=== PATIENT | female | born 1985 | race Caucasian/White ===

== ENCOUNTER 2022-07-19 13:05 | Inpatient (IN) | payer BC ==
[2022-07-19 16:02] VITALS: BMI 16.4
[2022-07-19] MEDS ORDERED: BISMUTH SUBSALICYLATE 524 MG/30 ML PO PRN (17:36)
[2022-07-19] MEDS ORDERED: ACETAMINOPHEN 325 MG TABLET (FP) PO PRN ×2 (17:36)
[2022-07-19] MEDS ORDERED: IBUPROFEN 400 MG TABLET (FP) PO PRN (17:36)
[2022-07-19] MEDS ORDERED: DICYCLOMINE HCL 10 MG CAPSULE PO PRN (17:36)
[2022-07-19] MEDS ORDERED: MAGNESIUM HYDROX 2400MG/30ML ORAL SUSPENSION 30 ML CUP PO PRN (17:36)
[2022-07-19] MEDS ORDERED: BENZOCAINE/MENTHOL (CHLORASEPTIC ) LOZENGE MM PRN (17:36)
[2022-07-19] MEDS ORDERED: chlordiazePOXIDE HCL 25 MG CAPSULE PO PRN (17:36)
[2022-07-19] MEDS ORDERED: LOPERAMIDE HCL 2 MG CAPSULE PO PRN (17:36)
[2022-07-19] MEDS ORDERED: IBUPROFEN 600 MG TABLET (FP) PO PRN (17:36)
[2022-07-19] MEDS ORDERED: MAGNESIUM CITRATE 300 ML BOTTLE PO PRN (17:36)
[2022-07-19] MEDS ORDERED: MAG HYDROX/AL HYDROX/SIMETH 30 ML UNIT-DOSE CUP PO PRN (17:36)
[2022-07-19] MEDS ORDERED: ONDANSETRON *ODT* 4 MG TABLET SL PRN (17:36)
[2022-07-19] MEDS: METHOCARBAMOL 500 MG TABLET PO PRN (18:42)
[2022-07-19] MEDS: hydrOXYzine PAMOATE 25 MG CAPSULE (FP) PO SCH ×2 (18:42→22:31)
[2022-07-19] MEDS ORDERED: MELATONIN 5 MG TABLETS PO SCH (22:00)
[2022-07-19] MEDS: THIAMINE HCL 100 MG TABLET (FP) PO SCH (22:31)
[2022-07-19] MEDS: chlordiazePOXIDE HCL 25 MG CAPSULE PO SCH (22:31)
[2022-07-20] MEDS: chlordiazePOXIDE HCL 25 MG CAPSULE PO SCH ×4 (06:14→22:19)
[2022-07-20] MEDS: hydrOXYzine PAMOATE 25 MG CAPSULE (FP) PO SCH ×5 (06:14→22:19)
[2022-07-20] MEDS ORDERED: NICOTINE 7 MG/24 HOURS TOPICAL PATCH TD SCH (10:00)
[2022-07-20 10:09] LABS: HEMATOCRIT 39.4 % (32.4-45.2); HEMOGLOBIN 13.1 GM/dL (10.7-15.3); MCH 34.6 pg (25.7-33.7); MCHC 33.3 g/dl (32.0-36.0); MEAN CELL VOLUME 103.6 fl (80-96); MEAN PLT VOLUME 7.6 fl (7.5-11.1); PLATELET COUNT 189 10^3/uL (134-434); RDW 13.3 % (11.6-15.6); WHITE BLOOD COUNT 8.5 K/mm3 (4.0-10.0)
[2022-07-20 10:35] LABS: BLOOD UREA NITROGEN 13.8 mg/dL (7-18)
[2022-07-20 10:36] LABS: ALBUMIN 4.1 g/dl (3.4-5.0); BILIRUBIN,TOTAL 1.7 mg/dL (0.2-1); CREATININE 0.9 mg/dL (0.55-1.3)
[2022-07-20] MEDS: PRENATAL VITAMINS W/ FOLIC ACID TABLET (FP) PO SCH (10:36)
[2022-07-20 10:37] LABS: TOT PROT 7.8 g/dl (6.4-8.2)
[2022-07-20 10:38] LABS: CALCIUM 9.8 mg/dL (8.5-10.1)
[2022-07-20] MEDS: NICOTINE 10 MG CARTRIDGE (INHALER) IH PRN ×2 (10:39→17:38)
[2022-07-20] MEDS ORDERED: POTASSIUM CHLORIDE ORAL LIQUID 20 MEQ/15 ML PO ONE (12:00)
[2022-07-20] MEDS: NICOTINE 21 MG/24 HOURS TOPICAL PATCH TD SCH (15:43)
[2022-07-20] MEDS: METHOCARBAMOL 500 MG TABLET PO PRN (17:38)
[2022-07-20] MEDS: THIAMINE HCL 100 MG TABLET (FP) PO SCH (22:19)
[2022-07-20] MEDS: POTASSIUM CHLORIDE ORAL LIQUID 20 MEQ/15 ML PO SCH (22:19)
[2022-07-20] MEDS: SUVOREXANT 10 MG TABLET PO PRN (22:20)
[2022-07-21] MEDS: hydrOXYzine PAMOATE 25 MG CAPSULE (FP) PO SCH ×5 (05:44→22:10)
[2022-07-21] MEDS: chlordiazePOXIDE HCL 25 MG CAPSULE PO SCH ×4 (05:44→22:11)
[2022-07-21] MEDS: NICOTINE 10 MG CARTRIDGE (INHALER) IH PRN ×3 (05:44→19:01)
[2022-07-21] MEDS: PRENATAL VITAMINS W/ FOLIC ACID TABLET (FP) PO SCH (10:14)
[2022-07-21] MEDS: POTASSIUM CHLORIDE ORAL LIQUID 20 MEQ/15 ML PO SCH ×2 (10:15→22:10)
[2022-07-21] MEDS: NICOTINE 21 MG/24 HOURS TOPICAL PATCH TD SCH (10:16)
[2022-07-21 14:26] LABS: CALCIUM 10.7 mg/dL (8.5-10.1)
[2022-07-21 14:27] LABS: ALBUMIN 4.2 g/dl (3.4-5.0); BLOOD UREA NITROGEN 10.8 mg/dL (7-18)
[2022-07-21 14:33] LABS: BILIRUBIN,TOTAL 0.9 mg/dL (0.2-1)
[2022-07-21] MEDS: THIAMINE HCL 100 MG TABLET (FP) PO SCH (22:10)
[2022-07-22] MEDS ORDERED: chlordiazePOXIDE HCL 10 MG CAPSULE PO PRN
[2022-07-22] MEDS: hydrOXYzine PAMOATE 25 MG CAPSULE (FP) PO SCH ×5 (05:40→22:29)
[2022-07-22] MEDS: chlordiazePOXIDE HCL 10 MG CAPSULE PO SCH ×4 (05:41→22:29)
[2022-07-22] MEDS: NICOTINE 10 MG CARTRIDGE (INHALER) IH PRN ×2 (09:25→17:54)
[2022-07-22] MEDS: PRENATAL VITAMINS W/ FOLIC ACID TABLET (FP) PO SCH (10:29)
[2022-07-22] MEDS: NICOTINE 21 MG/24 HOURS TOPICAL PATCH TD SCH (10:29)
[2022-07-22] MEDS: SUVOREXANT 10 MG TABLET PO PRN (22:29)
[2022-07-22] MEDS: THIAMINE HCL 100 MG TABLET (FP) PO SCH (22:29)
[2022-07-23] MEDS: chlordiazePOXIDE HCL 10 MG CAPSULE PO SCH ×2 (05:46→17:35)
[2022-07-23] MEDS: hydrOXYzine PAMOATE 25 MG CAPSULE (FP) PO SCH ×5 (05:47→22:30)
[2022-07-23] MEDS: PRENATAL VITAMINS W/ FOLIC ACID TABLET (FP) PO SCH (10:49)
[2022-07-23] MEDS: NICOTINE 21 MG/24 HOURS TOPICAL PATCH TD SCH (10:50)
[2022-07-23] MEDS: METHOCARBAMOL 500 MG TABLET PO PRN (17:36)
[2022-07-23] MEDS: THIAMINE HCL 100 MG TABLET (FP) PO SCH (22:30)
[2022-07-24] MEDS ORDERED: chlordiazePOXIDE HCL 10 MG CAPSULE PO ONE (05:00)
[2022-07-24 05:10] VITALS: BP 113/66; PULSE 67; RESP 18; TEMP 98.6
[2022-07-24] MEDS: hydrOXYzine PAMOATE 25 MG CAPSULE (FP) PO SCH (05:52)
== END 2022-07-24 09:15 | disposition home or self-care (01) | DRG 775 ==
LOC: YASAS 13:05 → Y6N 17:26
PROVIDERS: ADMIT Allergy & Immunology; ATTEND Surgery
PROC: HZ2ZZZZ Detoxification Services for Substance Abuse Treatment (ICD-10-PCS; principal; 2022-07-19)
DX: F10.230 Alcohol dependence with withdrawal, uncomplicated (principal); F12.20 Cannabis dependence, uncomplicated; F17.210 Nicotine dependence, cigarettes, uncomplicated; F10.280 Alcohol dependence with alcohol-induced anxiety disorder; F10.282 Alcohol dependence with alcohol-induced sleep disorder; E87.6 Hypokalemia; R73.9 Hyperglycemia, unspecified; R74.8 Abnormal levels of other serum enzymes; Z91.410 Personal history of adult physical and sexual abuse
CPT/HCPCS: 36415; 80053; 81025; 83036; 85027; 86780; 87811; C9803-CS; U0003; U0005

== ENCOUNTER 2022-08-29 16:41 | Inpatient (IN) | payer BC ==
[2022-08-29 17:37] VITALS: BP 112/73; PULSE 86; RESP 17; TEMP 97.7; BMI 18.4
[2022-08-29] MEDS ORDERED: METHOCARBAMOL 500 MG TABLET PO PRN (18:42)
[2022-08-29] MEDS ORDERED: MAG HYDROX/AL HYDROX/SIMETH 30 ML UNIT-DOSE CUP PO PRN (18:42)
[2022-08-29] MEDS ORDERED: LOPERAMIDE HCL 2 MG CAPSULE PO PRN (18:42)
[2022-08-29] MEDS ORDERED: BENZOCAINE/MENTHOL (CHLORASEPTIC ) LOZENGE MM PRN (18:42)
[2022-08-29] MEDS ORDERED: NICOTINE 10 MG CARTRIDGE (INHALER) IH PRN (18:42)
[2022-08-29] MEDS ORDERED: MAGNESIUM CITRATE 300 ML BOTTLE PO PRN (18:42)
[2022-08-29] MEDS ORDERED: BISMUTH SUBSALICYLATE 524 MG/30 ML PO PRN (18:42)
[2022-08-29] MEDS ORDERED: IBUPROFEN 600 MG TABLET (FP) PO PRN (18:42)
[2022-08-29] MEDS ORDERED: ONDANSETRON *ODT* 4 MG TABLET SL PRN (18:42)
[2022-08-29] MEDS ORDERED: ACETAMINOPHEN 325 MG TABLET (FP) PO PRN ×2 (18:42)
[2022-08-29] MEDS ORDERED: IBUPROFEN 400 MG TABLET (FP) PO PRN (18:42)
[2022-08-29] MEDS ORDERED: MAGNESIUM HYDROX 2400MG/30ML ORAL SUSPENSION 30 ML CUP PO PRN (18:42)
[2022-08-29] MEDS ORDERED: DICYCLOMINE HCL 10 MG CAPSULE PO PRN (18:42)
[2022-08-29] MEDS ORDERED: hydrOXYzine PAMOATE 25 MG CAPSULE (FP) PO SCH (22:00)
[2022-08-29] MEDS ORDERED: THIAMINE HCL 100 MG TABLET (FP) PO SCH (22:00)
[2022-08-29] MEDS ORDERED: MELATONIN 5 MG TABLETS PO SCH (22:00)
[2022-08-30] MEDS ORDERED: NICOTINE 7 MG/24 HOURS TOPICAL PATCH TD SCH (10:00)
[2022-08-30] MEDS ORDERED: PRENATAL VITAMINS W/ FOLIC ACID TABLET (FP) PO SCH (10:00)
[2022-08-30] MEDS ORDERED: FLU VACC QS2022-23(6MOS UP)/PF 60 MCG/0.5 ML SYRINGE IM ONE (12:00)
[2022-08-31] MEDS ORDERED: PNEUMOC 20-VAL CONJ-DIP CRM/PF 0.5 ML SYRINGE IM ONE (12:00)
== END 2022-08-29 21:23 | disposition left against medical advice (07) | DRG 770 ==
LOC: YASAS 16:41 → Y3N 19:18
PROVIDERS: ADMIT Allergy & Immunology; ATTEND Surgery
PROC: HZ2ZZZZ Detoxification Services for Substance Abuse Treatment (ICD-10-PCS; principal; 2022-08-29)
DX: F10.230 Alcohol dependence with withdrawal, uncomplicated (principal); F12.20 Cannabis dependence, uncomplicated; F17.210 Nicotine dependence, cigarettes, uncomplicated
CPT/HCPCS: C9803-CS; U0003; U0005